=== PATIENT | male | born 1990 | race Caucasian/White ===

== ENCOUNTER 2016-10-28 15:55 | Day surgery (SDC) | payer OTHER ==
[2016-10-27 12:14] VITALS: BMI 26.5
[~2016-10-28] VITALS: Ht 170.2 cm; Wt 80.9 kg
[2016-10-28] VITALS (15 sets, daily range): BP systolic 128–149; BP diastolic 82–106; PULSE 52–77; RESP 16–19; Ht 170.2 cm; Wt 80.9 kg
[~2016-10-28 15:55] MED LIST: LIDOCAINE 2% (SDV) 5 ML INJ ONE
[2016-10-28] MEDS ORDERED: LACTATED RINGER'S 1,000 ML IV* SCH (16:30)
--- NOTE | 2016-10-28 17:30 | HPN ---
Date/Time of Note Date/Time of Note DATE: 10/28/16 TIME: 17:30 Interval H&P Admission Note Pt. seen H&P reviewed: No system changes GEOVANNY LIND Oct 28, 2016 17:30
[2016-10-28] MEDS ORDERED: POLYMYXIN/BACITRACIN 1L IRRIG ONE (18:41)
[2016-10-28] MEDS ORDERED: LIDOCAINE 1% (MPF) 30 ML INJ ONE (18:48)
[2016-10-28] MEDS ORDERED: BUPIVACAINE 0.5% (SDV) 30 ML INJ ONE (18:48)
[2016-10-28] MEDS ORDERED: FENTAnyl 50 MCG/ML VIAL ONE (18:59)
[2016-10-28] MEDS ORDERED: NEOSTIGMINE 3 MG/3 ML SYRINGE ONE (19:59)
[2016-10-28] MEDS ORDERED: ROCURONIUM 50 MG INJ ONE (19:59)
[2016-10-28] MEDS ORDERED: PROPOFOL 40 ML ONE (19:59)
[2016-10-28] MEDS ORDERED: GLYCOPYRROLATE 0.4 MG INJ ONE (19:59)
[2016-10-28] MEDS ORDERED: CEFAZOLIN 1 GM INJ ONE (19:59)
[2016-10-28] MEDS ORDERED: SUCCINYLCHOLINE CHLORIDE 100 MG/5 ML SYG IV ONE (19:59)
[2016-10-28] MEDS ORDERED: LIDOCAINE 1% (MPF) 30 ML INJ INJ ONE (20:20)
[2016-10-28] MEDS ORDERED: BUPIVACAINE 0.5% (MPF) 30 ML INJ INJ ONE (20:20)
[2016-10-28] MEDS ORDERED: BUPIVACAINE 0.5% (SDV) 30 ML INJ INJ ONE (20:20)
[2016-10-28] MEDS ORDERED: HYDROCODONE/APAP (5/325) TAB PO PRN (21:00)
--- NOTE | 2016-10-28 21:11 | RADRPT ---
PROCEDURE: Intraoperative imaging of the right fifth finger with fluoroscopy. CLINICAL INDICATION: Right fifth finger pain. Intraoperative. TECHNIQUE: 13 images of the right hand were obtained in the operating room with an image intensifi er. No radiologist was in attendance. Fluoroscopy time was unavailable. COMPARISON: No prior study is available for comparison. FINDINGS: Images demonstrate reduction of a posterior dislocation of the fifth proximal interphalangeal joint. Subsequent images demonstrate placement of a K-wires within the fifth proximal phalanx and fifth m iddle phalanx. IMPRESSION: 1. Intraoperative imaging of the right fifth finger. RPTAT: QQ .Scott Mayes MD, MD Date Time Electronically viewed and signed by .Scott Mayes MD, MD on 10/28/2016 21:11 .R/
--- NOTE | 2016-11-19 12:49 | OPR ---
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 OPERATION PERFORMED: Open reduction of right small finger proximal interphalangeal joint chronic dorsal dislocation with pinning of the PIPJ joint. SURGEON: Oskar Martinez MD ANESTHESIA: General. OPERATIVE FINDINGS: Dorsal dislocation of the right small finger PIPJ with inability to reduce in a closed manner. Interposition of the volar plate preventing reduction, as well as significant contracture of the dorsal structures requiring pinning of the PIPJ for stability. INDICATIONS FOR PROCEDURE: A 26-year-old male with right small finger injury. He was seen in the clinic several weeks after his injury and diagnosed with a dorsal dislocation of the PIPJ. I discussed with him that this length of time with a dislocated joint makes it very difficult for closed reduction, even for stability with open reduction. The patient elected to proceed with attempted closed reduction in the clinic. Despite adequate anesthesia I was unable to reduce the joint in the clinic, and we discussed surgical intervention to reduce the PIPJ. The patient elected to proceed, understanding the risks and benefits. DESCRIPTION OF PROCEDURE: The patient was seen in the preoperative area and all further questions were answered. Again he gave informed consent understanding the risks and benefits. He was taken to the operative suite and placed in supine position. He was placed under general anesthesia and tourniquet placed in the right upper extremity. Ancef 2 grams given and the right upper extremity was prepped with Chloraprep and draped in the usual sterile fashion. Esmarch bandage was used to exsanguinate the extremity, and tourniquet inflated to 250 mmHg. A dorsal longitudinal incision was utilized over the small finger PIPJ and sharp dissection carried down through skin and subcutaneous tissue. Scissor dissection revealed the lateral bands on both the radial and ulnar aspects and the dislocation dorsally. The extensor tendon had been shortened over this period of time and I was unable to reduce the joint without a capsulotomy. A knife was used to incise between the lateral band and the central slip, and the capsule was opened. The base of the middle phalanx was visualized dorsally and there was interposing volar plate. A [place] elevator was used to clear out the soft tissue including the volar plate, and I was able to reduce the joint. I visualized the joint which was concentric when I held it in that position, but despite the structures being in more anatomic position the middle phalanx wanted to subluxate distally due to the chronicity of the injury and the soft tissue contraction. With manual manipulation I was able to range the joint through a full range of motion with concentric alignment of the joint without gapping radially or ulnarly; however, if I did not hold the joint in a flexed position the middle phalanx tended to subluxate dorsally. For this reason I decided to pin the joint for stability. Two dorsal blocking pins were placed; however, despite the 2 dorsal blocking pins there was still some dorsal subluxation and rotational instability. For this reason I decided to pin the PIPJ in a flexed position to allow for concentric joint reduction. A total of three 0.035 K wires were used to secure the joint in a more anatomic position. The wound was copiously irrigated and pins were cut short with pin caps placed. The skin was closed with 5-0 nylon and Xeroform placed over the wounds followed by sterile gauze, Webril and an ulnar gutter splint. The tourniquet was deflated after 59 minutes and the patient was awakened from anesthesia. He was taken to the postoperative suite in stable condition and tolerated the procedure well without complications. SPECIMENS: None. ESTIMATED BLOOD LOSS: 5 mL. COUNTS: Sponge, instrument and needle counts correct. TOURNIQUET TIME: 59 minutes. CONDITION ON DISCHARGE: Stable. Dictated By: Oskar Martinez MD /[email or web address] /Document#: [id number]
== END 2016-10-28 22:15 | disposition home or self-care (01) ==
LOC: SDS 15:55
PROVIDERS: ATTEND Orthopaedic Surgery Hand Surgery
DX: M24.444 Recurrent dislocation, right finger (principal)
CPT/HCPCS: 26785; 73140; C1713; J0690; J2710; J3010; J7999; Z7512; Z7610